=== PATIENT | female | born 1975 | race Caucasian/White ===

== ENCOUNTER 2020-05-10 01:55 | Outpatient (CLI) | payer BC, SELFPAY ==
[2020-05-10 23:05] LABS: SARS-CoV-2 RNA PCR Negative
== END 2020-05-10 01:56 | disposition home or self-care (01) ==
LOC: ANHCOVIDDT 01:55
PROVIDERS: PCP Nurse Practitioner Family; Visit Provider Internal Medicine Gastroenterology
DX: Z01.812 Encounter for preprocedural laboratory examination (principal); Z11.59 Encounter for screening for other viral diseases
CPT/HCPCS: 87635; C9803; U0003

== ENCOUNTER 2020-05-13 01:24 | Day surgery (SDC) | payer BC, SELFPAY ==
[2020-05-01 14:51] VITALS: BMI 25.5
[2020-05-13 09:08] VITALS: BP 108/72; PULSE 80; RESP 18; TEMP 37.1; O2SAT 99
--- NOTE | 2020-05-13 09:13 | P.PNAN_ITS ---
Anes - Initial Pre Proc Eval Procedure: Operation Date: 05/13/20 10:00 Proposed Procedures p Screening Colonoscopy - Anuj Herron MD Date/Time: 05/13/20 09:13 Surgeon: Anuj Herron MD Pre Op Diagnosis: Neoplasm Screening Patient Data Age: 45 Gender: F Height: 1.62 m Weight: 64.9 kg Last Vital Signs Temp 37.1 C 05/13/20 09:08 Pulse 80 05/13/20 09:08 Resp 18 05/13/20 09:08 BP 108/72 05/13/20 09:08 Pulse Ox 99 05/13/20 09:08 Allergies Allergy/AdvReac Type Severity Reaction Status Date / Time Sulfa (Sulfonamide Allergy Hives Verified 05/13/20 09:02 Antibiotics) Home Medications Medication Instructions Recorded Confirmed Type sertraline 100 mg tablet 100 mg PO DAILY #100 tablet 04/01/20 05/01/20 Rx levothyroxine 125 mcg tablet 1.25 mcg PO DAILY #30 tablet 04/03/20 05/01/20 Rx peg 3350-electrolytes 236 240 ml PO Q10M #4000 ml 04/25/20 Rx gram-22.74 gram-6.74 gram-5.86 gram solution Patient hx anesthesia problems: none Family hx anesthesia problems: none PMFSH Past Medical History Medical History (Updated 04/25/20 @ 14:28 by Anuj Herron MD) Anxiety Constipation Family history of colon cancer in father Hypothyroidism IBS (irritable bowel syndrome) Surgical History Surgical History (Updated 04/24/20 @ 10:40 by Laurita Barnett NP) H/O section (~1998) History of lymph node excision (~2009) Social History Social History (Updated 04/24/20 @ 10:24 by Laurita Barnett NP) Social History: Music/metaphysics teacher for middle school. , 3 children Smoking status: Never smoker Alcohol intake: current Gender identity (if verbalized by the patient): Female Anes - Eval Final PreProcedure Day of Procedure 05/13/20 09:13 Patient weight: normal Heart: regular rate and rhythm Lungs: clear to auscultation and normal air movement Airway: Mallampati scale class III Neurological: alert and oriented Last oral intake: >/= 8 hours ASA classification: II Emergent: no Anesthetic plan: proceed Anesthesia type and monitoring: general GIVS and standard monitoring Informed Consent: The patient's anesthetic plan and its attendant risks and benefits were discussed with the patient/family/POA. Questions were solicited and answers provided to the satisfaction of the patient/family/POA.
[2020-05-13] MEDS: LACTATED RINGERS 1,000 ML 150 ML IV CONT (09:24)
--- NOTE | 2020-05-13 09:58 | WPDHPUPDATE1 ---
History and Physical Update Update Date/Time: 05/13/20 09:58 History and Physical has been reviewed, including an updated exam of the patient. There are NO changes in the patient's condition. Risks, benefits, and alternatives have been discussed and questions answered. Patient agrees to proceed with procedure.
[2020-05-13 10:24] VITALS: BP 95/60; PULSE 70; RESP 22; O2SAT 100
[2020-05-13 10:34] VITALS: BP 111/52; PULSE 65; RESP 18; O2SAT 100
[2020-05-13 10:44] VITALS: BP 117/60; PULSE 68; RESP 20; O2SAT 100
== END 2020-05-13 11:06 | disposition home or self-care (01) ==
PROVIDERS: PCP Nurse Practitioner Family; Visit Provider Internal Medicine Gastroenterology
PROC: 0DJD8ZZ Inspection of Lower Intestinal Tract, Via Natural or Artificial Opening Endoscopic (ICD-10-PCS; CPT 45378; principal; 2020-05-13 10:00)
DX: Z12.11 Encounter for screening for malignant neoplasm of colon (principal); D12.3 Benign neoplasm of transverse colon; K64.8 Other hemorrhoids; K58.9 Irritable bowel syndrome, unspecified; K59.00 Constipation, unspecified; E03.9 Hypothyroidism, unspecified; F41.9 Anxiety disorder, unspecified; Z80.0 Family history of malignant neoplasm of digestive organs
CPT/HCPCS: 45385; 88305; J2704; J7120